=== PATIENT | female | born 1955 | race Caucasian/White ===

== ENCOUNTER 2022-03-17 08:33 | Day surgery (SDC) | payer MEDICARE, BC ==
[~2022-03-17] VITALS: Ht 162.6 cm; Wt 81.9 kg
--- NOTE | 2022-03-17 10:02 | NUR ---
03/17/22 Theresa Berrios HISTORY, CHART, MEDICATIONS AND ALLERGIES REVIEWED BEFORE START OF PROCEDURE. PATIENT CONFIRMS NPO STATUS AND AGREES WITH SCHEDULED PROCEDURE. 3-LEAD EKG REVIEWED WITH PHYSICIAN PRIOR TO START OF PROCEDURE. MONITOR INTACT WITH CONTINUOUS PULSE OXIMETRY,CAPNOGRAPHY, 3-LEAD EKG, INTERMITTENT BP. SUPPLEMENTAL O2 TO BE TITRATED THROUGHOUT PROCEDURE TO MAINTAIN O2 SATURATION ABOVE 90%. PATIENT DETERMINED TO BE ASA APPROPRIATE FOR PROPOFOL SEDATION PRIOR TO START OF PROCEDURE BY DR. DOUGLAS. MALLAMPATI CLASS 2 AIRWAY: COMPLETE VISUALIZATION OF THE UVULA.
--- NOTE | 2022-03-17 10:50 | NUR ---
Patient up to Ambulate independently. Gait steady. Discharge instructions reviewed with patient. Patient verbalizes understanding. Copy given to patient to take home. Patient States Post-Procedure ride home has been arranged with . Discharged via wheelchair to private car for ride home.
== END 2022-03-17 10:54 | disposition home or self-care (01) ==
LOC: ORSCMMR 08:33 → ORD 09:30 → ORSCMMR 09:30
PROVIDERS: Internal Medicine Gastroenterology
PROC: 0DBP8ZX Excision of Rectum, Via Natural or Artificial Opening Endoscopic, Diagnostic (ICD-10-PCS; principal; 2022-03-17 09:30)
PROC: 0DBN8ZX Excision of Sigmoid Colon, Via Natural or Artificial Opening Endoscopic, Diagnostic (ICD-10-PCS; principal; 2022-03-17 09:30)
DX: Z12.11 Encounter for screening for malignant neoplasm of colon (principal); D12.5 Benign neoplasm of sigmoid colon; K62.1 Rectal polyp; E66.9 Obesity, unspecified; Z68.32 Body mass index [BMI] 32.0-32.9, adult
CPT/HCPCS: 88305; J2250; J2405; J2704; J7120

== ENCOUNTER 2022-04-03 08:14 | Day surgery (SDC) | payer MEDICARE, BC ==
[~2022-04-03] VITALS: Ht 162.6 cm; Wt 83.6 kg
--- NOTE | 2022-04-03 08:33 | NUR ---
04/03/22 0833 Severo Serna CALL LIGHT WITHIN REACH. TETRACAIN IN THE RIGHT EYE AT 0829 AND LARISSA AT 0831
--- NOTE | 2022-04-03 09:41 | NUR ---
04/03/22 0941 ILAN PEÑA STATES NO PAIN IN EYE. JUST A LITTLE ITCHY
== END 2022-04-03 09:40 | disposition home or self-care (01) ==
LOC: ORSCSDS 08:14
PROVIDERS: Ophthalmology
PROC: 08RJ3JZ Replacement of Right Lens with Synthetic Substitute, Percutaneous Approach (ICD-10-PCS; principal; 2022-04-03 09:30)
DX: H25.11 Age-related nuclear cataract, right eye (principal)
CPT/HCPCS: J2001; J2250; J3010; J3301; J7040; V2632

== ENCOUNTER 2022-05-22 08:01 | Day surgery (SDC) | payer MEDICARE, BC ==
[~2022-05-22] VITALS: Ht 162.6 cm; Wt 84.5 kg
--- NOTE | 2022-05-22 08:43 | NUR ---
05/22/22 0843 Era Rosario AT 0842 PLEDGET AT 0843
== END 2022-05-22 10:06 | disposition home or self-care (01) ==
LOC: ORSCSDS 08:01
PROVIDERS: Ophthalmology
PROC: 08DK3ZZ Extraction of Left Lens, Percutaneous Approach (ICD-10-PCS; principal; 2022-05-22 09:30)
DX: H25.12 Age-related nuclear cataract, left eye (principal); Z96.1 Presence of intraocular lens; E66.9 Obesity, unspecified; Z68.32 Body mass index [BMI] 32.0-32.9, adult; Z79.899 Other long term (current) drug therapy
CPT/HCPCS: J2001; J2250; J3010; J3301; J7040; V2632